=== PATIENT | female | born 1930 | race Caucasian/White ===

== ENCOUNTER → 2018-02-14 | Outpatient (CLI) | payer OTHER ==
[~2018-02-14] MED LIST: ACETAMINOPHEN325 M1 PO; ALEVE220 M1 PO; ASA81BEC PO; CALCIUM 600 WI1 EAC5 PO; CARDIZEM CD240 MG PO; CEPHALEXIN 250250 MG PO; DEXILANT60 MG PO; DOCUSATE SODIU100 MG PO; ETODOLAC 400 M400 M1 PO; FLEXERIL PO; IRON325 PO; LASIX 40 MG TAB40 MG PO; LIPITOR20 MG PO; MULTIVITAMINS PO; NEURONTIN600 MG PO; OXYCODONE HCL15 MG PO; PERCOCET 5-3251 EACH PO; PERCOCET 7.5-31 EACH PO; POTASSIUM20 PO; QUALAQUIN324 MG PO; TRAMADOL 50 MG50 MG PO; TRAVATAN 0.004%5 ML OP; TRAVATAN Z5 ML; XANAX 0.5 MG0.5 MG PO; ZOCOR40 MG PO
== END ==
LOC: M.RAD 11:57
DX: I70.0 Atherosclerosis of aorta (principal)